=== PATIENT | female | born 1990 | race Caucasian/White ===

== ENCOUNTER → 2018-02-19 | Outpatient (CLI) | payer OTHER ==
[2018-02-19 11:59] LABS: Basophils % (A) 1 %; Eosinophils # (A) 0.2 k/uL (0-0.7); Eosinophils % (A) 5 %; HCT 40.3 % (34.0-46.0); HGB 13.4 gm/dL (11.4-16.0); Lymphocytes # (A) 1.4 k/uL (1.0-4.8); Lymphocytes % (A) 31 %; MCH 29.1 pg (25.0-35.0); MCHC 33.2 g/dL (31.0-37.0); MCV 87.5 fL (80.0-100.0); Mean Platelet Volume 7.2; Monocytes # (A) 0.3 k/uL (0-1.0); Monocytes % (A) 6 %; Neutrophils # (A) 2.6 k/uL (1.3-7.7); Neutrophils % (A) 57 %; Platelet Count 244 k/uL (150-450); RBC 4.61 m/uL (3.80-5.40); RDW 13.7 % (11.5-15.5); WBC 4.5 k/uL (3.8-10.6)
[2018-02-19 12:10] LABS: ALT 24 U/L (9-52); AST 20 U/L (14-36); Albumin 4.5 g/dL (3.5-5.0); Alkaline Phosphatase 69 U/L (38-126); Anion Gap 14 mmol/L; Blood Urea Nitrogen 3 mg/dL (7-17); Calcium 9.6 mg/dL (8.4-10.2); Carbon Dioxide 27 mmol/L (22-30); Chloride 103 mmol/L (98-107); Glucose 96 mg/dL (74-99); Sodium 144 mmol/L (137-145); Total Bilirubin 0.7 mg/dL (0.2-1.3)
== END | disposition home or self-care (01) ==
LOC: LABWHC1 11:38
PROVIDERS: ATTEND Physician Assistant
DX: R19.7 Diarrhea, unspecified (principal)
CPT/HCPCS: 36415; 80053; 83516; 84443; 85025

== ENCOUNTER → 2018-11-26 | Outpatient (CLI) | payer OTHER | END | disposition home or self-care (01) | LOC: LABWHC1 09:51 | PROVIDERS: ATTEND Internal Medicine Interventional Cardiology | DX: I10 Essential (primary) hypertension (principal); R00.2 Palpitations | CPT/HCPCS: 36415; 84439; 84443 ==

== ENCOUNTER → 2021-04-02 | Outpatient (CLI) | payer OTHER ==
[2021-04-02 10:44] VITALS: BP 102/66; PULSE 83; RESP 18; TEMP 98.3
--- NOTE | 2021-04-02 11:10 | P.GSHP ---
History of Present Illness H&P Date: 04/02/21 Chief Complaint: mass left breast Sherin is a 30 year old white female seen in consultation for Dr. Hanson regarding a lump in her left breast. Patient noted a lump approximately 5 months ago. She subsequently underwent an ultrasound of the left breast which was performed on 02/11/2021. This revealed at the 1 o'clock position approximately 1 cm from the nipple a 1.4 cm mass with circumscribed margins approximately 1.4 cm in size. She subsequently underwent an ultrasound-guided core biopsy of the lesion on . This revealed a fibroepithelial lesion with differential diagnosis including fibroadenoma versus a phylloides tumor. Pathologic recommendation was for removal. Patient states that her breasts to become engorged with the and at this time she does not feel the lesion. She does not feel any other lumps masses or nodules of concern in her breast. She is not complaining of any nipple discharge or changes. She has not complained of any recent trauma or infection in the breast. Caffeine: 1 cup/day Nicotine: /4 PPD chocolate: weekly Family history: Maternal grandmother: Throat cancer Maternal grandfather: Stomach cancer History: Menarche: 14 now 23 weeks, bresat fed: no, age at first : 2009 [place] Regular up until control pills: used for approximately a year when younger, did use the Doppler shot in the past, has not used any control pills for approximately 8 years Surgical history: None Medical history: Anxiety-induced tachycardia Social history: Nicotine: A quarter pack per day Alcohol: Negative Drugs: Marijuana occasionally helps with morning sickness - Constitutional Constitutional: Denies chills, Denies fever - EENT Eyes: denies blurred vision, denies pain Ears: deny: decreased hearing, tinnitus Ears, nose, mouth and throat: Denies headache, Denies sore throat - Breasts Breasts: bilateral: as per HPI - Cardiovascular Cardiovascular: Denies chest pain, Denies shortness of breath - Respiratory Respiratory: Denies cough, Denies 7 - Gastrointestinal Gastrointestinal: Denies abdominal pain, Denies diarrhea, Denies nausea, Denies vomiting - Genitourinary (Female) Genitourinary: Denies dysuria, Denies hematuria - Menstruation Comment: patient 23 1/2 weeks - Musculoskeletal Musculoskeletal: Denies myalgias - Integumentary Integumentary: Denies pruritus, Denies rash - Neurological Neurological: Denies numbness, Denies weakness - Psychiatric Psychiatric: Denies anxiety, Denies depression - Endocrine Endocrine: Denies fatigue, Denies weight change - Hematologic/Lymphatic Comment: none - Allergic/Immunologic Allergic/Immunologic: Reports seasonal allergies Past Medical History Additional Past Medical History / Comment(s): TACHYCARDIA History of Any Multi-Drug Resistant Organisms: None Reported Additional Past Surgical History / Comment(s): BREAST BIOPSY LEFT 03/2021 Past Anesthesia/Blood Transfusion Reactions: No Reported Reaction Past Psychological History: No Psychological Hx Reported Smoking Status: Light tobacco smoker Past Alcohol Use History: None Reported Past Drug Use History: Marijuana Surgical - Exam Vital Signs Temp Pulse Resp BP Pulse Ox 98.3 F 83 18 102/66 97 04/02/21 10:35 04/02/21 10:35 04/02/21 10:35 04/02/21 10:35 04/02/21 10:35 BMI 22.3 - General no distress - Eyes normal ocular movement - ENT normal pinna, no hearing loss - Neck no masses, trachea midline - Respiratory normal respiratory effort, clear to auscultation - Cardiovascular Rhythm: regular Heart Sounds: normal: S1, S2 - Abdomen Gravid uterus 23 weeks - Integumentary normal turgor - Neurologic no disoriented, no combative - Musculoskeletal normal gait, normal posture - Psychiatric oriented to time, oriented to person, oriented to place, speech is normal, memory intact Breast exam: BRA: 34C prior to 36B inspection: Breast engorged bilaterally secondary to Palpation: Right breast: Multiple positional exam for breast with no dominant masses or nodules of concern Right axilla: Small shotty adenopathy non-worrisome Left breast: Multi-positional exam for breast the area of concern is not palpable at this time secondary to the engorgement related to Left axilla: no adenopathy of concern Results Ultrasound results as well as ultrasound core biopsy pathology review Note from Dr. Hanson's office reviewed Assessment and Plan Assessment: Impression: 1. 30-year-old white female 23-1/2 weeks with a recently diagnosed left breast mass which is no longer palpable related to the engorgement of the breast secondary to , core biopsy revealed fibroadenoma versus phylloides tumor on recommendation from pathology was for surgical excision 2. Family history of cancer 3. Patient does not plan to breast-feed Plan: 1. The patient's pathology slides will be reviewed by our pathologist 2. Follow-up ultrasound to ascertain if the lesion has grown as it is not palpable on physical exam at this time 3. If the histology slides are non-worrisome and the lesion has not grown we will most likely wait for removal until the patient delivers; if necessary surgical resection would be recommended in the second trimester 4. Surgical resection is necessary ultrasound-guided localization would be needed 5. Follow-up next week CC: Dr. Hanson
--- NOTE | 2021-04-02 13:54 | USB ---
Reason for exam: clinical finding. Physical Findings: Breast exam performed by Dr. Harper. US Breast Limited LT Left limited breast ultrasound including focal area of concern, retroareolar and axilla demonstrates a 1.3 x 0.9 x 1.7cm solid, hypoechoic lesion at 1 o'clock, previously biopsied, slightly larger, previously 1.3 x 1.3 x 1.1cm and a 1.5 x 0.7 x 1.2cm lymph node at the axilla. These results were verbally communicated with the patient and result sheet given to the patient on 04/02/21. ASSESSMENT: Suspicious, BI-RAD 4 RECOMMENDATION: Surgical consultation of the left breast. Called Dr. Harper's office with mammographic findings. PRELIMINARY REPORT CALLED AND FAXED TO DR. HARPER ON 04/02/21.
== END ==
LOC: WWCWWP 09:47
PROVIDERS: ATTEND Surgery
DX: O92.29 Other disorders of breast associated with pregnancy and the puerperium (principal); O99.332 Smoking (tobacco) complicating pregnancy, second trimester; F17.210 Nicotine dependence, cigarettes, uncomplicated; Z3A.23 23 weeks gestation of pregnancy; Z80.8 Family history of malignant neoplasm of other organs or systems; Z80.0 Family history of malignant neoplasm of digestive organs

== ENCOUNTER → 2021-04-09 | Outpatient (CLI) | payer OTHER ==
[2021-04-09 10:08] VITALS: BP 115/67; PULSE 84; RESP 18; TEMP 98.3
--- NOTE | 2021-04-09 10:35 | P.PN ---
Subjective Progress Note Date: 04/09/21 Principal diagnosis: Lesion left breast Sherin is a 30 year old white female seen in consultation for Dr. Hanson on 04-02-21 regarding a lump in her left breast. She is 24 weeks . Patient noted a lump at that time approximately 5 months prior. She subsequently underwent an ultrasound of the left breast which was performed on 02/11/2021. This revealed at the 1 o'clock position approximately 1 cm from the nipple a 1.4 cm mass with circumscribed margins approximately 1.4 cm in size. She subsequently underwent an ultrasound-guided core biopsy of the lesion on . This revealed a fibroepithelial lesion with differential diagnosis including fibroadenoma versus a phylloides tumor. Pathologic recommendation was for removal. Patient states that her breasts to become engorged with the and at this time she does not feel the lesion. She does not feel any other lumps masses or nodules of concern in her breast. She is not complaining of any nipple discharge or changes. She has not complained of any recent trauma or infection in the breast. Caffeine: 1 cup/day Nicotine: / PPD chocolate: weekly The pathology slides were reviewed by our pathologist who concurred that the diagnosis of fibroadenoma versus 40s tumor is the differential. Excision of the lesion is recommended. A repeat ultrasound was performed and the repeat ultrasound shows that the lesion appears to have increased slightly in size to 1.3 x 0.9 x 1.7 cm from 1.3 x 1.3 by 1.1 cm. Additionally a lymph node was noted to be present in the axilla which was 1.5 x 1.2 cm incised this was reviewed with radiology and felt to be benign. Family history: Maternal grandmother: Throat cancer Maternal grandfather: Stomach cancer History: Menarche: 14 now 23 weeks, bresat fed: no, age at first : 2009 [place] Regular up until control pills: used for approximately a year when younger, did use the Doppler shot in the past, has not used any control pills for approximately 8 years Surgical history: None Medical history: Anxiety-induced tachycardia Social history: Nicotine: A quarter pack per day Alcohol: Negative Drugs: Marijuana occasionally helps with morning sickness - Constitutional Constitutional: Denies chills, Denies fever - EENT Eyes: denies blurred vision, denies pain Ears: deny: decreased hearing, tinnitus Ears, nose, mouth and throat: Denies headache, Denies sore throat - Breasts Breasts: bilateral: as per HPI - Cardiovascular Cardiovascular: Denies chest pain, Denies shortness of breath - Respiratory Respiratory: Denies cough - Gastrointestinal Gastrointestinal: Denies abdominal pain, Denies diarrhea, Denies nausea, Denies vomiting - Genitourinary (Female) Genitourinary: Denies dysuria, Denies hematuria - Menstruation Comment: patient 23 1/2 weeks - Musculoskeletal Musculoskeletal: Denies myalgias - Integumentary Integumentary: Denies pruritus, Denies rash - Neurological Neurological: Denies numbness, Denies weakness - Psychiatric Psychiatric: Denies anxiety, Denies depression - Endocrine Endocrine: Denies fatigue, Denies weight change - Hematologic/Lymphatic Comment: none - Allergic/Immunologic Allergic/Immunologic: Reports seasonal allergies Objective - Vital Signs Vital signs: Vital Signs Temp 98.3 F 04/09/21 10:06 Pulse 84 04/09/21 10:06 Resp 18 04/09/21 10:06 BP 115/67 04/09/21 10:06 Pulse Ox 100 04/09/21 10:06 Intake & Output 04/08/21 04/09/21 04/09/21 18:59 06:59 18:59 Weight 54.885 kg - Constitutional General appearance: Present: cooperative - EENT Eyes: Present: EOMI - Neck Neck: Present: normal ROM - Respiratory Respiratory: bilateral: CTA - Cardiovascular Heart sounds: normal: S1, S2 - Gastrointestinal Gastrointestinal Comment(s): gravid uterus - Integumentary Integumentary: Present: normal turgor - Musculoskeletal Musculoskeletal: Present: gait normal - Psychiatric Psychiatric: Present: A&O x's 3, appropriate affect, intact judgment & insight - Additional findings Additional findings: Breast examination from [address]21 Drive: 34 mL prior to 30 6B Inspection: Breast engorgement bilaterally secondary to Palpation: Right breast multiple positional exam no dominant masses or nodules of concern Right axilla: Shoddy adenopathy non-worrisome Left breast multiple positional exam with particular attention to the area of concern did not reveal any dominant masses or nodules of concern Left axilla: No adenopathy of concern Assessment and Plan Assessment: Impression: 1. 30-year-old white female 24 weeks with recently diagnosed left breast mass no longer palpable related to engorgement of the breast secondary to , pathology slides were reviewed by our pathologist in differential diagnosis is fibroadenoma versus phyllodes tumor surgical resection recommended 2. Family history of cancer 3. Patient does not plan to breast-feed 4. Recent ultrasound shows the lesion has increased in size Plan: 1. Ultrasound-guided localization and resection of tumor 2. Medical clearance from Dr. Hanson Skin benefits of the procedure discussed with the patient. Risks include but are not limited to bleeding, infection, reaction to the anesthetic. The additional risk would be related to the fetus secondary to anesthesia. The pat ient understands and wishes to proceed. CC: Dr. Hanson
== END ==
LOC: WWCWWP 09:57
PROVIDERS: ATTEND Surgery
DX: O92.29 Other disorders of breast associated with pregnancy and the puerperium (principal); Z3A.24 24 weeks gestation of pregnancy

== ENCOUNTER → 2021-04-27 | Day surgery (SDC) | payer OTHER ==
[~2021-04-27] MED LIST: ACETAMINOPHEN TAB 325 MG TAB ONE; ACETAMINOPHEN TAB 325 MG TAB PO ONE; DEXAMETHASONE SOD PHOSPHATE 4 MG/ML 1 ML VIAL IV ONE; HEPARIN SODIUM,PORCINE/PF 5,000 UNIT/0.5 ML SYRINGE SQ PRN; HYDROmorphone 0.5 MG/0.5 ML SYRINGE IVP PRN; LACTATED RINGERS 1,000 ML IV ONE; LACTATED RINGERS 1,000 ML IV SCH; LIDOCAINE 1% INJ 10MG/ML (20 ML MDV) SQ ONE; ONDANSETRON 4 MG/2 ML VIAL IVP ONE; PHENYLEPHRINE-0.9% NACL SYG 1,000 MCG/10 ML SYRINGE ONE; PROPOFOL 10 MG/ML 20 ML VIAL IV ONE; Pre Op ABX Message 1 EACH MISC MISCELLANE ONE; fentaNYL (PF) 50 MCG/ML 2 ML AMP ONE
[2021-04-27 10:42] VITALS: TEMP 98.1
--- NOTE | 2021-04-27 13:06 | P.OP ---
Date of Procedure: 04/27/21 Preoperative Diagnosis: Ultrasound abnormality left breast/core biopsy fibroadenoma versus cystosarcoma phylloides tumor Postoperative Diagnosis: same Procedure(s) Performed: ultrasound guided needle localization and excision lesion in the left breast Anesthesia: MAC, local Surgeon: Callie Harper Estimated Blood Loss (ml): 20 IV fluids (ml): 800 Pathology: other (breast tissue) Disposition: same day Indications for Procedure: Ultrasound-guided core biopsy fibroadenoma versus cystosarcoma phylloides left breast Operative Findings: mass left breast Description of Procedure: Sherin is a 30-year-old 26 week white female who presented with a nodule in her left breast. Core biopsy of this was a fibroadenoma versus cystosarcoma phylloides tumor. It was felt that the patient should have this excised secondary to the question of a cystosarcoma. This was discussed and cleared with her OB doctor. The patient was seen in the radiology suite where ultrasound localization was performed. She was then brought to the operating room and following this the left breast was prepped and draped in a sterile fashion. One percent lidocaine was used to anesthetize the area of concern. 10 mL of 1% lidocaine was utilized. Wide excision of the area of concern was performed. The lesion was painted for orientation. Ultrasound of the specimen revealed that the lesion of concern had been removed. Following this the wound was examined for hemostasis. After w were assured that hemostasis was attained the wound was well irrigated. The deep tissues were closed using 3-0 Vicryl suture. The subcutaneous tissue was closed using 3-0 Vicryl suture. A 4-0 Monocryl was placed in the subcuticular tissue. A nylon was placed in the skin. The patient tolerated procedure in stable condition. All instrument and sponge counts were correct at the end of the case.
--- NOTE | 2021-04-27 13:08 | P.DS ---
Providers Attending physician: Callie Harper Primary care physician: Diamond Raines Plan - Discharge Summary New Discharge Prescriptions: No Action Cholecalciferol [Vitamin D3 (10 Mcg = 400 Iu)] 10 mcg PO DAILY Pediatric Multivitamin No.30 [Multivitamin Children's Gummies] 1 each PO DAILY Discharge Medication List Cholecalciferol [Vitamin D3 (10 Mcg = 400 Iu)] 10 mcg PO DAILY 04/02/21 [History] Pediatric Multivitamin No.30 [Multivitamin Children's Gummies] 1 each PO DAILY 04/02/21 [History] Follow up Appointment(s)/Referral(s): Callie Harper MD [STAFF PHYSICIAN] - 05/06/21 4:20 pm Activity/Diet/Wound Care/Special Instructions: Do not drive for 24 hours after discharge, or if taking narcotic pain medication May shower after 48 hours Where bra at all times unless showering Discharge Disposition: HOME SELF-CARE
--- NOTE | 2021-04-27 13:13 | USB ---
EXAMINATION TYPE: US breast localization LT, US breast surgical specimen LT DATE OF EXAM: 04/27/2021 10:59 AM COMPARISON: NONE HISTORY: Left 1:00 breast lesion Informed consent was obtained and all the patient's questions were answered. The lesion in question was localized sonographically The standard sterile technique was utilized, as well as appropriate local anesthesia with 1% Lidocaine. Localization needle followed by placement of a guidewire was performed under sonographic guidance. Verification images demonstrate appropriate deployment of the guidewire. The patient tolerated the procedure well and left the department in stable condition. Specimen sonographic demonstrates the mass in question to reside within the specimen. IMPRESSION: Successful needle localization and open biopsy left breast with pathology results pending . Pathology Results: Benign LEFT BREAST, NEEDLE LOCALIZATION EXCISION: Fibroadenoma/fibroadenomatoid hyperplasia in a background of fibrocystic changes. Recommendation Follow up ultrasound of the left breast in 6 months. JESSI
[2021-04-27 14:20] VITALS: PULSE 73
[2021-04-27 14:29] VITALS: BP 111/75; RESP 16
--- NOTE | 2021-04-30 11:02 | MM ---
MG Surgical Specimen LT EXAMINATION TYPE: US breast localization LT, US breast surgical specimen LT DATE OF EXAM: 04/27/2021 10:59 AM COMPARISON: NONE HISTORY: Left 1:00 breast lesion Informed consent was obtained and all the patient's questions were answered. The lesion in question was localized sonographically The standard sterile technique was utilized, as well as appropriate local anesthesia with 1% Lidocaine. Localization needle followed by placement of a guidewire was performed under sonographic guidance. Verification images demonstrate appropriate deployment of the guidewire. The patient tolerated the procedure well and left the department in stable condition. Specimen sonographic demonstrates the mass in question to reside within the specimen. IMPRESSION: Successful needle localization and open biopsy left breast with pathology results pending. RECOMMENDATION: Ultrasound of the left breast in 6 months. MTDD
== END | disposition home or self-care (01) ==
LOC: OR 08:46
PROVIDERS: ATTEND Surgery
DX: O99.891 Other specified diseases and conditions complicating pregnancy (principal); N63.20 Unspecified lump in the left breast, unspecified quadrant; Z3A.26 26 weeks gestation of pregnancy
CPT/HCPCS: 19285; 19125; 88307; 76098; 76999; J2001; J3010; J2370; J2704; J1644

== ENCOUNTER → 2021-05-06 | Outpatient (CLI) | payer OTHER ==
--- NOTE | 2021-05-06 16:32 | P.PN ---
Progress Note - Text Progress Note Date: 05/06/21 Sherin is a 30 year old 28 week [place] [id number]. Pathology revealed fibroadenoma. The patient tolerated the procedure well with no complications. The patient is smoking a quarter pack per day. She is not smoking marijuana at this time she stopped this 2 weeks ago. She is not complaining of any fever or chills. She is not complaining of any pain. She does have some itching at the sutures. Lungs: Clear Heart: Regular rate and rhythm Incision: Clean and dry no evidence of infection Impression: Patient status post open biopsy of fibroadenoma Plan: 1. Follow-up in 6 months 2. Follow-up sooner any questions or concerns CC: Dr. Fields, Dr. Hanson
[2021-05-06 16:41] VITALS: BP 112/72; PULSE 98; RESP 16; TEMP 98.9
== END | disposition home or self-care (01) ==
LOC: WWCWWP 16:23
PROVIDERS: ATTEND Surgery
DX: Z53.9 Procedure and treatment not carried out, unspecified reason (principal)